=== PATIENT | male | born 1940 | race Caucasian/White ===

== ENCOUNTER 2021-06-21 11:46 | Observation (INO) | payer MEDICARE ==
[~2021-06-21] VITALS: Ht 185.4 cm; Wt 103.0 kg
[2021-06-21 12:48] LABS: HEMOGLOBIN 13.9 gm/dl (14.0-17.5); RED BLOOD COUNT 4.49 M/UL (4.20-5.50); WHITE BLOOD COUNT 13.5 K/UL (4.5-11.0)
[2021-06-21 13:23] LABS: BUN/CREATININE RATIO 21 (0-10)
[2021-06-21] MEDS ORDERED: METFORMIN HCL1000 MG PO (17:48)
[2021-06-21] MEDS ORDERED: ATORVASTATIN CA40 MG PO (17:48)
[2021-06-21] MEDS ORDERED: AMLODIPINE BESY10 MG PO (17:48)
[2021-06-21] MEDS ORDERED: TRIAMTERENE-HC1 EAC3 PO (17:49)
[2021-06-21] MEDS ORDERED: POTASSIUM CHLO20 ME2 PO (17:50)
[2021-06-21] MEDS ORDERED: ACETAMINOPHEN-1 EAC1 PO (17:51)
[2021-06-21] MEDS ORDERED: DULOXETINE HCL30 MG PO (17:52)
[2021-06-21] MEDS ORDERED: GLIMEPIRIDE4 MG PO (17:53)
[2021-06-21] MEDS ORDERED: ARTHRITIS PAIN150 GM TP (17:53)
[2021-06-23 02:34] LABS: WHITE BLOOD COUNT 12.9 K/UL (4.5-11.0)
[2021-06-23 02:48] LABS: RED BLOOD COUNT 3.96 M/UL (4.20-5.50)
[2021-06-23 08:14] LABS: ANTISTREPTOLYSIN O AB <20.0 IU/mL (0.0-200.0); RHEUMATOID ARTHRITIS FACTOR 27.6 IU/mL (<14.0)
--- NOTE | 2021-06-23 13:20 | NUR ---
TALKED TO PT, PTS CAREGIVER, AND HIS SON AND THEY AGREE THAT PT SHOULD GO TO A SHORT-TERM REHAB PLACEMENT. DR. RUIZ IS AWARE AND CASEMANAGERS HAVE BEEN CONSULTED
[2021-06-24 03:29] LABS: HEMOGLOBIN 12.8 gm/dl (14.0-17.5); RED BLOOD COUNT 4.14 M/UL (4.20-5.50); WHITE BLOOD COUNT 9.9 K/UL (4.5-11.0)
[2021-06-24 03:55] LABS: BUN/CREATININE RATIO 27 (0-10)
== END 2021-06-26 21:50 ==
LOC: ER1 11:46 → CDU 15:35 → M/S 15:35
PROVIDERS: Physician Assistant; Physician Assistant Medical; ADMIT Internal Medicine Infectious Disease
DX: T79.6XXA Traumatic ischemia of muscle, initial encounter (principal); Z20.822 Contact with and (suspected) exposure to COVID-19; E11.9 Type 2 diabetes mellitus without complications; I10 Essential (primary) hypertension; M19.90 Unspecified osteoarthritis, unspecified site; M10.9 Gout, unspecified; N30.00 Acute cystitis without hematuria; W18.30XA Fall on same level, unspecified, initial encounter; Z79.84 Long term (current) use of oral hypoglycemic drugs; Z79.899 Other long term (current) drug therapy
CPT/HCPCS: 36415; 70450; 71045; 72170; 80048; 80053; 80061; 81001; 82550; 82553; 82607; 82962; 83036; 83735; 84443; 84484; 84550; 85025; 85027; 85652; 86038; 86060; 86140; 86200; 86431; 93005; 96372; 96374; 96375; 96376; 97110; 97116-GP-CQ; 97162; 97166; 97530; 97530-GP-CQ; 97535; 99285; G0103; G0378; J0696; J1100; J1650; U0002